=== PATIENT | female | born 1995 | race Caucasian/White ===

== ENCOUNTER 2021-07-26 11:48 | Outpatient (CLI) | payer SELFPAY ==
[2021-07-26 13:31] LABS: Hematocrit 37.3 % (37-47); Hemoglobin 12.5 g/dL (12.0-15.0); Mean Corp Hgb Conc 33.5 g/dL (32-36); Mean Corpuscular Volume 86.5 fL (81-99); Mean Platelet Vol. 12.4 fl (6.2-12.0); Platelet Count 217 K/mm3 (150-450); RBC Distribution Width CV 12.4 % (11.6-14.6); RBC Distribution Width SD 39.4 fl (35.1-43.9); Red Blood Count 4.31 M/mm3 (4.2-5.4); White Blood Count 5.3 K/mm3 (4.4-11.0)
[2021-07-26 13:52] LABS: Estradiol 181.2 pg/mL; Follicle Stimulating Hormone 3.4 mIU/mL; Luteinizing Hormone 7.2 mIU/mL; T4 Free Direct 0.89 ng/dL (0.76-1.46); Thyroid Stim Hormone (TSH) 2.11 uIU/mL (0.358-3.74)
== END 2021-07-26 23:59 | disposition home or self-care (01) ==
LOC: WOBLAB 11:49
PROVIDERS: Visit Provider Obstetrics & Gynecology
DX: R39.0 Extravasation of urine (principal); N97.9 Female infertility, unspecified
CPT/HCPCS: 36415; 82670; 83001; 83002; 84439; 84443; 85027; 86900; 86901; 87086; 87088

== ENCOUNTER 2021-08-23 14:24 | Outpatient (CLI) | payer OTHER, SELFPAY ==
[2021-08-23 16:10] LABS: Absolute Lymphocyte Count 1.34 X10^3/uL (0.83-4.51); Absolute Neutrophil Count 6.3 X10^3/uL (2.0-7.7); Basophil# 0.03 X10^3/uL; Basophil% 0.4 % (0-1); Eosinophil# 0.04 X10^3/uL; Eosinophils% 0.5 % (0-5); Hematocrit 35.1 % (37-47); Hemoglobin 12.3 g/dL (12.0-15.0); Lymphocyte # 1.34 X10^3/ul (0.83-4.51); Lymphocyte % 16.3 % (19-41); Mean Corpuscular Hgb 30.1 pg (27.0-32.0); Mean Platelet Vol. 12.9 fl (6.2-12.0); Monocyte# 0.49 X10^3/uL; NRBC Flagged by Analyzer 0 % (0-5); Neutrophil # 6.28 X10^3/uL (2.7-7.7); Neutrophil % 76.6 % (47-70); Platelet Count 198 K/mm3 (150-450); RBC Distribution Width CV 12.2 % (11.6-14.6); RBC Distribution Width SD 38.5 fl (35.1-43.9); Red Blood Count 4.08 M/mm3 (4.2-5.4); White Blood Count 8.2 K/mm3 (4.4-11.0)
[2021-08-24 09:17] LABS: HIV - WCH Non-Reactive (Nonreactive); Hepatitis B Surface Antigen Non-Reactive (Nonreactive); Hepatitis C Antibody Non-Reactive (Nonreactive); Rubella IgG Reactive (Nonreactive); Syphilis Antibodies Non-reactive
[2021-08-25 22:07] LABS: Chlamydia By Nucleic Acid AMP Negative (Negative)
[2021-08-25 23:01] LABS: Gonococcus By Nucleic Acid AMP Negative (Negative)
[2021-08-30 20:36] LABS: HPV Reflexed? NOT INDICATED
== END 2021-08-23 23:59 | disposition home or self-care (01) ==
LOC: WOBLAB 14:24
PROVIDERS: Visit Provider Student in an Organized Health Care Education/Training Program
DX: Z34.81 Encounter for supervision of other normal pregnancy, first trimester (principal)
CPT/HCPCS: 36415; 85025; 86703; 86762; 86780; 86803; 87086; 87340; 87491; 87591; 88175; G0145

== ENCOUNTER → 2022-01-18 | Outpatient (CLI) | payer OTHER, SELFPAY ==
[2022-01-18 16:43] LABS: Absolute Lymphocyte Count 1.28 X10^3/uL (0.83-4.51); Absolute Neutrophil Count 11.3 X10^3/uL (2.0-7.7); Basophil# 0.03 X10^3/uL; Hematocrit 32.7 % (37-47); Hemoglobin 10.9 g/dL (12.0-15.0); Lymphocyte # 1.28 X10^3/ul (0.83-4.51); Mean Corp Hgb Conc 33.3 g/dL (32-36); Mean Corpuscular Hgb 30.3 pg (27.0-32.0); Mean Corpuscular Volume 90.8 fL (81-99); Mean Platelet Vol. 13.4 fl (6.2-12.0); Monocyte# 0.79 X10^3/uL; NRBC Flagged by Analyzer 0 % (0-5); Neutrophil # 11.32 X10^3/uL (2.7-7.7); Platelet Count 162 K/mm3 (150-450); RBC Distribution Width CV 12.9 % (11.6-14.6); RBC Distribution Width SD 42.6 fl (35.1-43.9); White Blood Count 13.7 K/mm3 (4.4-11.0)
[2022-01-18 16:49] LABS: Glucose Challenge Gest 1H 50g 79 mg/dL (70-140)
[2022-01-18 20:26] LABS: Basophil 0 % (0-1); Blast 0 % (0-0); Differential Indicated SCAN CRITERIA MET; Eosinophil 0 % (0-5); Lymphocyte 0 % (19-41); Metamyelocyte 0 % (0-1); Monocyte 0 % (0-10); Myelocyte 0 % (0-0); Neutrophil-Band 0 % (0-5); Neutrophil-Segmented 0 % (47-70); Other WBC Type 0 %; Plasma Cell 0 %; Promyelocyte 0 % (0-0)
[2022-01-18 23:08] LABS: Differential Comment SCANNED
== END | disposition home or self-care (01) ==
PROVIDERS: Visit Provider Student in an Organized Health Care Education/Training Program
DX: Z34.82 Encounter for supervision of other normal pregnancy, second trimester (principal)
CPT/HCPCS: 36415; 82950; 85025

== ENCOUNTER → 2022-02-01 | Outpatient (CLI) | payer OTHER, SELFPAY | END | disposition home or self-care (01) | LOC: WOBLAB 09:56 | PROVIDERS: Visit Provider Student in an Organized Health Care Education/Training Program | DX: Z34.83 Encounter for supervision of other normal pregnancy, third trimester (principal) | CPT/HCPCS: 36415; 86850 ==

== ENCOUNTER → 2022-03-22 | Outpatient (CLI) | payer OTHER, SELFPAY | END | disposition home or self-care (01) | LOC: LABSPEC 15:42 | PROVIDERS: Visit Provider Student in an Organized Health Care Education/Training Program | DX: Z36.85 Encounter for antenatal screening for Streptococcus B (principal) | CPT/HCPCS: 87081 ==

== ENCOUNTER 2022-04-13 07:55 | Inpatient (IN) | payer SELFPAY, OTHER ==
[2022-04-13] VITALS (16 sets, daily range): BP systolic 94–113; BP diastolic 51–73; PULSE 54–75; RESP 16–17; TEMP 36.2–36.7; O2SAT 98; BMI 26.6
[2022-04-13] MEDS: Lactated Ringers 1,000 ML 50 ML IV (08:20)
--- NOTE | 2022-04-13 08:26 | PCM.HP.BLA ---
History and Physical Date of Admission: 04/13/22 Chief complaint: Contractions History of present illness: 27-year-old at 39 weeks and 5 days with CHRISTOPHER 04/15/2022 arrives with contractions. Denies headache, visual changes, chest pain, shortness of breath, nausea vomit, right upper quadrant pain. Patient states good movement. Obstetric history: G1: male 7 pounds 4 ounces G2: male 5 pounds 6 ounces G3: Current Past medical history: None Medications: vitamin Allergies: No known drug allergies Social history: Denies smoking, alcohol, drug use Family history: Denies history of DVT or PE Review of systems: Besides above pertinent positives a full review of systems was performed and found to be negative Physical exam: Vitals: Blood pressure 111/73 pulse 74 temp 98.1 Fahrenheit General: Normal-appearing no acute distress HEENT: Normocephalic/atraumatic no cervical lymphadenopathy Cardiac/respiratory: No use accessory muscles, nonlabored breathing Abdomen: Soft, nontender, gravid Extremities: No peripheral edema normal peripheral pulses Psych: Normal affect normal demeanor nonpressured speech Labs: Pending Assessment plan: 27-year-old G3, P2 at 39 weeks and 5 days with labor Admit labor and delivery CEFM GBS negative Routine orders
[2022-04-13 08:38] LABS: Absolute Lymphocyte Count 1.35 X10^3/uL (0.83-4.51); Absolute Neutrophil Count 8.9 X10^3/uL (2.0-7.7); Basophil# 0.02 X10^3/uL; Basophil% 0.2 % (0-1); Eosinophils% 1.8 % (0-5); Hematocrit 34.7 % (37-47); Hemoglobin 11.2 g/dL (12.0-15.0); Lymphocyte # 1.35 X10^3/ul (0.83-4.51); Mean Corp Hgb Conc 32.3 g/dL (32-36); Mean Corpuscular Hgb 28.1 pg (27.0-32.0); Mean Platelet Vol. 13.1 fl (6.2-12.0); Monocyte# 0.68 X10^3/uL; NRBC Flagged by Analyzer 0 % (0-5); Neutrophil % 79.1 % (47-70); Platelet Count 155 K/mm3 (150-450); RBC Distribution Width CV 13.4 % (11.6-14.6); RBC Distribution Width SD 42.6 fl (35.1-43.9); Red Blood Count 3.99 M/mm3 (4.2-5.4); White Blood Count 11.3 K/mm3 (4.4-11.0)
[2022-04-13] MEDS: fentaNYL 100 MCG/2 ML Ampul IV (08:39)
[2022-04-13] MEDS: Oxytocin 10 UNITS/ML Vial IM (10:05)
[2022-04-13] MEDS: Oxytocin 15 Units/NS 250ml 15 UNITS/250 ML IV.SOLN 83 UNITS IV (10:05)
--- NOTE | 2022-04-13 10:11 | EX.PCM.OBRPT ---
Vaginal Delivery Findings Description of Procedure: Normal spontaneous vaginal delivery of a viable male , vertex CHRISSIE. Head and shoulders delivered with ease. Cord cut and clamped. Baby handed off to patient. Placenta delivered via cord traction and fundal massage. No lacerations noted. EBL 250 cc Apgars 8/9. 10 units of IM Pitocin given per protocol
[2022-04-13] MEDS: Acetaminophen 500 MG Tablet PO (10:55)
--- NOTE | 2022-04-13 18:25 | NURSING ---
Reviewed and Agreed with Nancy COOK charting.
[2022-04-14] VITALS (8 sets, daily range): BP systolic 98–112; BP diastolic 58–68; PULSE 53–65; RESP 16–17; TEMP 35.9–36.7; O2SAT 97–99
--- NOTE | 2022-04-14 08:29 | DCINST_ITS ---
Discharge Instructions Diet Discharge Diet: No restrictions Activity Discharge Activity: Return to Normal Activity and May Shower May resume sexual activity in: 4-6 weeks Weight Bearing Status: Weight bearing as tolerated Lifting Restrictions: No greater than 25 pounds Dressing / Incision Call your doctor if you observe: Fever of 101 or Higher, Change in Color, Inability to urinate, Using more than 1 pad per hour, Shortness of breath, Dizziness, Swelling in the ankles, Chest pain and Calf discomfort Follow Up Care Please Follow Up With: Ashley Hoover DO When: 4-6-week visit Test Results: Test results from this visit will be discussed in further detail at your follow- up appointment, if applicable. Discharge Plan Admission Admit Date/Time: 04/13/22 07:55 Primary Reason for Your Visit: Vaginal delivery Attending Provider: Vidal Hoover Primary Care Provider: Care Physician,Julia Primary Discharge Orders/Prescriptions Referrals / Follow Up: Care Physician,Julia Primary [Primary Care Provider] - Disposition Disposition (needs filled in before D/C Order can be placed): Home, Self Care
--- NOTE | 2022-04-14 08:29 | PN.OBGYN_ITS ---
Subjective Subjective No overnight complaints Objective Data Objective Data Vital Signs: Vital Signs Temp Pulse Resp BP Pulse Ox O2 Del Method 96.6 F L 58 L 16 112/68 98 Room Air 04/14/22 04:05 04/14/22 04:05 04/14/22 04:00 04/14/22 04:05 04/14/22 04:00 04/14/22 04:00 Oxygen Delivery Method Room Air Weight: 165 lb 5.547 oz Body Mass Index (BMI) 26.6 Intake & Output: Intake and Output for Last 24 Hours 04/12/22 04/13/22 04/14/22 23:59 23:59 23:59 Intake Total 758.33 / 758.33 Output Total 900 / 900 Balance -141.67 / -141.67 Lab / Micro Data Result Diagrams: 04/13/22 08:20 Labs: Laboratory Results - last 24 hr 04/13/22 08:20: WBC 11.3 H, RBC 3.99 L, Hgb 11.2 L, Hct 34.7 L, MCV 87.0, MCH 28.1, MCHC 32.3, RDW Std Deviation 42.6, RDW Coeff of Alee 13.4, Plt Count 155, MPV 13.1 H, Immature Gran % (Auto) 0.900, Neut % (Auto) 79.1 H, Lymph % (Auto) 12.0 L, [place] % (Auto) 6.0, Eos % (Auto) 1.8, Baso % (Auto) 0.2, Absolute Neuts (auto) 8.9 H, Absolute Lymphs (auto) 1.35, Nucleated RBC % 0 04/13/22 08:20: Blood Type O NEGATIVE, Antibody Screen Not Reportable 04/13/22 08:20: Antibody Screen NEGATIVE 04/13/22 13:30: Screen NEGATIVE, Baby's Blood Type O POSITIVE, Baby's ALEKSANDRA NEGATIVE Physical Exam Const alert, oriented x3, no apparent distress, average body habitus, healthy appearing and well nourished HEENT normocephalic and moist oral mucous membranes Eyes PERRL Neck full ROM Resp normal respiratory effort, no retractions and no use of accessory muscles GI GI Narrative: Soft, nontender, uterus firm and below umbilicus Extremity normal to inspection, full ROM and no clubbing, cyanosis or edema Psych mental status grossly normal, affect normal, speech normal and activity/motor behavior normal Assessment & Plan (1) Vaginal delivery: PLAN: day 1. Formula feeding. Pain well controlled. Okay to discharge home today
== END 2022-04-14 14:30 | disposition home or self-care (01) | DRG 807 ==
PROVIDERS: Admitting Provider Obstetrics & Gynecology; Visit Provider Obstetrics & Gynecology
DX: O80 Encounter for full-term uncomplicated delivery (principal); Z37.0 Single live birth; Z3A.39 39 weeks gestation of pregnancy
CPT/HCPCS: 59025; 59050; 85025; 85461; 86850; 86900; 86901; 99218; J7120; G0378; J2790